=== PATIENT | male | born 1965 | race Caucasian/White ===

== ENCOUNTER 2016-07-05 20:19 | Emergency (ER) | payer OTHER ==
[~2016-07-05] VITALS: Ht 180.3 cm; Wt 102.6 kg
[2016-07-05] MEDS ORDERED: PAROXETINE HCL40 MG PO (21:02)
[2016-07-05] MEDS ORDERED: BUSPAR15 MG PO (21:02)
[2016-07-05 22:39] LABS: HEMATOCRIT 40.9 % (38.0-50.0); MCH 30.9 PG (29.0-34.0); MCHC 34.7 G/DL (30.0-36.0); MCV 88.9 FL (86-99); MEAN PLAT.VOLUME 9.7 uM^3 (9.0-12.4); PLATELET COUNT 273 K/uL (156-360); RBC DIS.WIDTH-SD 39.2 % (39-53); WHITE BLOOD COUNT 10.1 K/uL (4.1-10.2)
[2016-07-05 22:52] LABS: CHLORIDE 105 mEq/L (99-109); POTASSIUM 4.6 mEq/L (3.7-5.4); SODIUM 140 mEq/L (136-147)
[2016-07-05 22:53] LABS: GLUCOSE 101 mg/dL (70-99)
[2016-07-05 22:55] LABS: ANION GAP 11 MEQ/L (2-14)
[2016-07-05 22:57] LABS: GFR ESTIMATE (CALCULATED) > 59 mL/min/
[2016-07-05 22:58] LABS: UREA NITROGEN (BUN) 15 mg/dL (9-23)
[2016-07-05 23:05] LABS: TROP-I INTERPRETATION NEGATIVE; TROPONIN-I < 0.01 ng/mL (0.0-0.30)
[2016-07-05 23:23] VITALS: BP 190/103
== END 2016-07-05 23:29 | disposition home or self-care (01) ==
LOC: EME 20:19
PROVIDERS: Emergency Medicine
DX: R07.9 Chest pain, unspecified (principal); F17.200 Nicotine dependence, unspecified, uncomplicated
CPT/HCPCS: 71020; 80048; 83880; 84484; 85027; 93005; 99281; 99285

== ENCOUNTER 2016-07-25 18:09 | Emergency (ER) | payer OTHER ==
[~2016-07-25] VITALS: Ht 180.3 cm; Wt 87.2 kg
[~2016-07-25 18:09] MED LIST: BUSPAR15 MG PO; PAROXETINE HCL40 MG PO
[2016-07-25] MEDS ORDERED: DILTIAZEM 24HR120 M2 PO (19:22)
[2016-07-25] MEDS ORDERED: ATIVAN0.5 MG PO (20:10)
[2016-07-25 20:14] VITALS: BP 130/83
== END 2016-07-25 20:18 | disposition home or self-care (01) ==
LOC: EME 18:09
DX: F41.9 Anxiety disorder, unspecified (principal); F17.200 Nicotine dependence, unspecified, uncomplicated
CPT/HCPCS: 80048; 85027; 99281; 99283; G0480

== ENCOUNTER 2016-10-29 03:51 | Emergency (ER) | payer OTHER ==
[~2016-10-29] VITALS: Ht 185.4 cm; Wt 92.8 kg
[~2016-10-29 03:51] MED LIST changes: +ATIVAN0.5 MG PO; +DILTIAZEM 24HR120 M2 PO
[2016-10-29 04:37] LABS: HEMATOCRIT 42.6 % (38.0-50.0); MCH 31.7 PG (29.0-34.0); MCHC 35.4 G/DL (30.0-36.0); MCV 89.5 FL (86-99); MEAN PLAT.VOLUME 9.4 uM^3 (9.0-12.4); PLATELET COUNT 275 K/uL (156-360); RBC DIS.WIDTH-CV 11.9 % (11.8-14.6); RBC DIS.WIDTH-SD 39.3 % (39-53); RED BLOOD COUNT 4.76 M/uL (4.00-5.50); WHITE BLOOD COUNT 7.9 K/uL (4.1-10.2)
[2016-10-29 04:47] LABS: CHLORIDE 104 mEq/L (99-109); POTASSIUM 3.7 mEq/L (3.7-5.4); SODIUM 139 mEq/L (136-147)
[2016-10-29 04:48] LABS: GLUCOSE 108 mg/dL (70-99)
[2016-10-29 04:50] LABS: ANION GAP 10 MEQ/L (2-14)
[2016-10-29 04:52] LABS: GFR ESTIMATE (CALCULATED) > 59 mL/min/; SERUM ETHYL ALCOHOL < 10 mg/dL
[2016-10-29 04:53] LABS: UREA NITROGEN (BUN) 9 mg/dL (9-23)
[2016-10-29 06:19] VITALS: BP 166/102
[2016-10-30] MEDS ORDERED: ABILIFY10 MG PO (13:52)
== END 2016-10-29 06:20 | disposition home or self-care (01) ==
LOC: EME 03:51
DX: F41.1 Generalized anxiety disorder (principal); F17.200 Nicotine dependence, unspecified, uncomplicated
CPT/HCPCS: 80048; 85027; 90839; G0480

== ENCOUNTER 2016-10-30 10:17 | Inpatient (IN) | payer OTHER ==
[~2016-10-30] VITALS: Ht 182.9 cm; Wt 91.0 kg
[2016-10-30 11:09] LABS: ADD MEDTOX COMMENT Y; AMPHETAMINE NEGATIVE (500 ng/mL); BARBITURATES NEGATIVE (200 ng/mL); BENZODIAZEPINES PRESUMPTIVE POSITIVE (150 ng/mL); COCAINE NEGATIVE (150 ng/mL); INTERNAL CONTROLS VALID? YES; METHADONE NEGATIVE (200 ng/mL); METHAMPHETAMINE NEGATIVE (500 ng/mL); OPIATES (MORPHINE) NEGATIVE (100 ng/mL); OXYCODONE NEGATIVE (100 ng/mL); PHENCYCLIDINE NEGATIVE (25 ng/mL); PROPOXYPHENE NEGATIVE (300 ng/mL); THC CANNABINOIDS NEGATIVE (50 ng/mL); TRICYCLIC ANTIDEPRESSANTS NEGATIVE (300 ng/mL)
[2016-10-30 12:12] LABS: BENZODIAZEPINES QUANT VALUE 0 NG/ML; BENZODIAZEPINES, URINE SCREEN Negative (200 ng/mL)
[2016-10-30 12:51] LABS: MCH 31.8 PG (29.0-34.0); MCHC 35.5 G/DL (30.0-36.0); MCV 89.8 FL (86-99); MEAN PLAT.VOLUME 9.5 uM^3 (9.0-12.4); PLATELET COUNT 282 K/uL (156-360); WHITE BLOOD COUNT 11.1 K/uL (4.1-10.2)
[2016-10-30 13:03] LABS: CHLORIDE 104 mEq/L (99-109); POTASSIUM 4.1 mEq/L (3.7-5.4); SODIUM 139 mEq/L (136-147)
[2016-10-30 13:04] LABS: GLUCOSE 91 mg/dL (70-99)
[2016-10-30 13:06] LABS: ANION GAP 10 MEQ/L (2-14)
[2016-10-30 13:08] LABS: GFR ESTIMATE (CALCULATED) > 59 mL/min/; SERUM ETHYL ALCOHOL < 10 mg/dL
[2016-10-30 13:09] LABS: UREA NITROGEN (BUN) 12 mg/dL (9-23)
[2016-10-30] MEDS ORDERED: ABILIFY10 MG PO (13:52)
[2016-10-30 15:38] VITALS: BP 129/81
[2016-10-31 07:40] VITALS: BP 114/69
[2016-10-31 15:25] VITALS: BP 135/75
[2016-11-01 07:43] VITALS: BP 119/72
[2016-11-01 16:01] VITALS: BP 153/90
[2016-11-01 18:19] VITALS: BP 157/93
[2016-11-01 19:58] VITALS: BP 168/104
[2016-11-01 20:53] VITALS: BP 147/89
[2016-11-02 07:42] VITALS: BP 140/87
[2016-11-02 15:44] VITALS: BP 144/82
[2016-11-03 08:11] VITALS: BP 126/67
[2016-11-03 15:28] VITALS: BP 138/83
[2016-11-04 07:22] VITALS: BP 159/88
[2016-11-04] MEDS ORDERED: SEROQUEL100 MG PO ×3 (10:16→10:18)
== END 2016-11-04 11:23 | disposition home or self-care (01) | DRG 880 ==
LOC: EME 10:17 → 1WEST 12:22 → EDOF 12:22 → 1WEST 12:22 → ENRESERV 15:31 → 1WEST 15:31
PROVIDERS: Emergency Medicine
DX: F41.1 Generalized anxiety disorder (principal); R45.851 Suicidal ideations; F32.9 Major depressive disorder, single episode, unspecified; F13.10 Sedative, hypnotic or anxiolytic abuse, uncomplicated; F17.200 Nicotine dependence, unspecified, uncomplicated; F10.20 Alcohol dependence, uncomplicated; Z79.899 Other long term (current) drug therapy; Y90.0 Blood alcohol level of less than 20 mg/100 ml
CPT/HCPCS: 80048; 84999; 85027; 90839; 97150 GO; 97165 GO; 99281; 99285; G0480; Q0177